=== PATIENT | male | born 1940 | race Caucasian/White ===

== ENCOUNTER 2018-04-01 18:29 | Inpatient (IN) | payer OTHER ==
--- NOTE | 2018-04-01 18:45 | EDPHY ---
H & P Source: Patient, Family (), RN/MD, EMS Exam Limitations: No limitations Time Seen by Provider: 04/01/18 18:44 HPI/ROS: HPI: This is a 77-year-old male who presents with Chief Complaint: Mechanical fall Location: Quality: Duration: Signs and Symptoms: No bleeding, no radiation, no numbness, no weakness, no tingling, no incontinence, no decreased range of motion, no swelling, no pain, no fever Timing: Severity: Context: Patient presents via EMS with accidentally tripping on the carpet while wearing shoes inside of the house approximately 1 hr prior to arrival. Patient reports that as he was falling forward he turned his body to the left "acute was sliding into home plate." Patient reports that he hit his left wrist , then his left ribs. He reports that he got the wind knocked out of him. Patient has COPD in supplemental oxygen dependent 2-3 L continuous. Patient was able to ambulate and get up off of the floor on his own. Denies LOC/head injury/neck pain/dizziness/nausea/vomiting/amnesia. On Plavix and aspirin. Patient complains of left lateral and posterior rib pain that is worsened with taking a deep breath or touching the area. He also complains of left wrist plane and a small cut on the left wrist. Reports tetanus is current. Denies radiation, weakness, decreased range of motion. Patient is right-hand dominant. Modifying Factors: Comment: ROS: A comprehensive 10 system review of systems is otherwise negative aside from elements mentioned in the history of present illness. MEDICAL/SURGICAL/SOCIAL HISTORY: Medical history: COPD, continues oxygen dependent, coronary artery disease, depression Surgical history: Denies Social history: , retired. Former smoker. CONSTITUTIONAL: Polite and cooperative, elderly white male, at bedside, awake and alert, no obvious distress HEENT: Atraumatic and normocephalic, PERRL, EOMI. no globe entrapment, no raccoon eyes. no [place] signs.Tympanic membranes clear. No tympanic membrane rupture. Nares patent; no septal hematoma. Oropharynx clear, no exudate and moist pink mucosa. No malocclusion. no dental trauma. Airway patent. No lymphadenopathy. NECK: supple, no midline tenderness, flexion 45 degrees, extension 45 degrees, right and left lateral flexion 45 degrees. No meningismus. Cardiovascular: Normal S1/S2, regular rate, regular rhythm, without murmur rub or gallop. PULMONARY/CHEST: Symmetrical and left lower lateral and posterior reproducible rib tenderness-no ecchymosis/no step-off. no crepitus. Coarseness inspiratory and expiratory bilaterally. Shallow inspiratory effort. Fair air movement. No accessory muscle usage. ABDOMEN: Soft, protuberant, nondistended, nontender, no ecchymosis, no rebound , no guarding, no peritoneal signs, no masses or organomegaly. No CVAT. PELVIC: no pain with rocking; bilateral hips flexion 125 degrees, extension 30 degrees, with no pain internal rotation and no pain external rotation. BACK: No midline tenderness, no paraspinous spasm, deep tendon reflexes 2/2, no pain with straight leg raise EXTREMITIES: 2/2 radial pulses, left WRIST: Small 1/4 inch superficial abrasion noted to the ulnar aspect-no active bleeding. Extension to 70, flexion to 80, radial deviation to 20 degree, ulnar deviation to 30, no scaphoid tenderness, no tenderness over ulnar styloid, no tenderness over radial styloid. no deformities, no clubbing, no cyanosis or edema. NEUROLOGICAL: no focal neuro deficits. GCS 15. SKIN: Warm and dry, leathery, no erythema. no rash. Good capillary refill. (Brittney Raphael) Constitutional: Initial Vital Signs Temperature (C) 36.5 C 04/01/18 18:41 Heart Rate 65 04/01/18 18:41 Respiratory Rate 20 04/01/18 18:41 Blood Pressure 148/92 H 04/01/18 18:41 O2 Sat (%) 96 04/01/18 18:41 O2 Delivery Mode Nasal Cannula O2 (L/minute) 2 Allergies/Adverse Reactions: Sulfa (Sulfonamide Antibiotics) Allergy (Verified 04/01/18 18:50) unk statin med Allergy (Uncoded 04/01/18 18:50) Home Medications: Medication Instructions Recorded AZELASTINE HCL [Optivar Opth Soln] 0 drop OP 06/27/12 Albuterol Hfa Anes Only [Proair 2 puffs IH QID 06/27/12 Hfa Icu] Albuterol [Proventil 2 mg (RX)] 2 mg PO TID 06/27/12 Aspirin [Aspir 81] 81 mg PO 06/27/12 BUPROPION HCL [BUPROPION XL] 300 mg PO 06/27/12 Clopidogrel Bisulfate [Plavix (RX)] 75 mg PO DAILY 06/27/12 Doxycycline Monohydrate 100 mg PO 06/27/12 [Doxycycline] FLUTICASONE/SALMETEROL [ADVAIR HFA 1 puffs IH 06/27/12 115-21 MCG INHALER] FLUoxetine [Prozac Oral Liquid] 20 mg PO 06/27/12 Furosemide [Lasix 20 MG (RX)] 20 mg PO 06/27/12 Guaifenesin [Mucinex] 600 mg PO 06/27/12 Insulin NPH Human Isophane 100 unit SQ 06/27/12 [Novolin N] Ipratropium 0.03% Nasal [Atrovent 2 sprays EACHNARE 06/27/12 0.03% Nasal (RX)] Ipratropium [Atrovent Hfa] 200 puffs IH 06/27/12 Isosorbide 1 gm MC 06/27/12 LEVOTHYROXINE SODIUM [Tirosint 88 112 mcg PO 06/27/12 mcg] Losartan/Hydrochlorothiazide 1 each PO 06/27/12 [Losartan-Hctz 100-12.5 Mg Tab] Mometasone/Formoterol [Dulera 100 13 gm IH 06/27/12 Mcg/5 Mcg Inhaler] Nitroglycerin [Nitrostat 0.4 mg 0.4 mg SL PRN PRN 06/27/12 (RX)] OXYBUTYNIN CHLORIDE [Ditropan ER 5 mg PO 06/27/12 10 mg] Oxygen-Air Delivery Systems 1 ea IH AD 06/27/12 [OXYGEN] Pantoprazole Sodium [Protonix] 40 mg PO 06/27/12 Pravastatin Sodium 40 mg PO 06/27/12 Spironolactone 25 mg PO 06/27/12 Tamsulosin HCl [Flomax 0.4 MG (RX)] 0.4 mg PO DAILY8 06/27/12 Zoldipem 06/27/12 amLODIPine BESYLATE [Norvasc] 10 mg PO DAILY 06/27/12 metFORMIN HCL [Glucophage] 1,000 mg PO 06/27/12 Medical Decision Making ED Course/Re-evaluation: Vital signs reviewed and show O2 sats to be 86% on room air. Placed on 3 L nasal cannula and O2 sats 96%. Placed on satellite project site monitor. Fall was mechanical in nature. IV access and i-STAT laboratory studies ordered Based on nexus protocol of age greater than 65 years old and on blood thinners, head CT imaging ordered Will order CT chest with contrast to evaluate for rib fracture, pneumothorax Given IV morphine 4 mg and IV Zofran 4 mg Left wrist x-ray ordered Left wrist superficial abrasion cleaned with soap and water; bacitracin clean sterile dressing applied. 1858: Notified by refrigeration technician that patient and were not declining left wrist x-ray. 1949: Notified by RN that CT brought patient back as coughing. Given Tessalon Perles 200 mg. Patient/ now refusing head CT scan despite my recommendation. We discussed risk of intracranial hemorrhage and . Patient understands this and wishes to not proceed with head CT scan. 2008: WBC 12 K, H&H 10.1/11.6-normocytic type, creatinine 0.1. No signs of anemia/platelet dysfunction/JEFF/electrolyte imbalance. 2014: Notified by RN that patient is complaining of pain and unable to lie flat for CT. IV Dilaudid 1 mg given 2056: Called by Radiology, CT chest shows emphysema, substernal goiter, nondisplaced fractured ribs 5. 6. 7. 8., no pneumothorax ED decision to consult Trauma surgery, Dr. Barrera, for admission for multiple rib fractures in COPD patient that is oxygen dependent. Recommendation is to admit to step-down for frequent neuro checks due to polite refusal of head CT scan while on blood thinners and greater than 65 years of age. Hospitalist, Dr. Hui, consulted for medical management. No signs of neurovascular compromise/tenting of skin/compartment syndrome/ extremities and joints examined above and below area of concern and are neurovascularly intact. This patient was seen under the supervision of my secondary supervising physician. Discussed this patient with Dr. Cabrera who did see the patient. (Brittney Raphael) Differential Diagnosis: Differential diagnosis includes but is not limited to rib fracture, pulmonary contusion, pneumothorax, hemo thorax, left wrist fracture (Brittney Raphael) Other Provider: PHYSICIAN DOCUMENTATION: The patient was evaluated and managed by the Physician Grinder And Plater and myself. I have reviewed the chart and agree with the findings and plan of care as documented. In addition, I examined the patient myself. History confirmed as mechanical fall, did not have syncope or lose consciousness. Physical findings as follows: Patient is alert and conversant. He does have breath sounds but are decreased on both sides. Warned that delay or failure to diagnose intracranial bleed could result in permanent disability or even . He had refused CT scanning because he was worried about being claustrophobic. At this point with multiple rib fractures on a patient who is already on oxygen , will admit to Trauma service for further evaluation and treatment. Cervical spine cleared clinically by myself. No neck tenderness. I am the secondary supervising physician. (Amilcar Cabrera) - Data Points Laboratory Results: Laboratory Results 04/01/18 19:12 04/01/18 19:12 04/01/18 04/01/18 04/01/18 19:18 19:12 19:12 WBC RBC Hgb POC Hgb 11.6 gm/dL L gm/dL (13.7-17.5) Hct POC Hct 34 % L % (40-51) MCV MCH MCHC RDW Plt Count MPV Neut % (Auto) Lymph % (Auto) [place] % (Auto) Eos % (Auto) Baso % (Auto) Nucleat RBC Rel Count Absolute Neuts (auto) Absolute Lymphs (auto) Absolute Monos (auto) Absolute Eos (auto) Absolute Basos (auto) Absolute Nucleated RBC Immature Gran % Immature Gran # PT 12.8 SEC SEC (12.0-15.0) INR 0.94 (0.83-1.16) APTT 28.5 SEC SEC (23.0-38.0) POC Sodium 138 mEq/L mEq/L (135-145) Sodium 134 mEq/L L mEq/L (135-145) POC Potassium 4.9 mEq/L mEq/L (3.3-5.0) Potassium 5.1 mEq/L mEq/L (3.5-5.2) POC Chloride 102 mEq/L mEq/L (97-110) Chloride 104 mEq/L mEq/L (97-110) Carbon Dioxide 24 mEq/l mEq/l (22-31) Anion Gap 6 mEq/L mEq/L (6-14) POC BUN 20 mg/dL mg/dL (7-23) BUN 22 mg/dL mg/dL (7-23) Creatinine 0.8 mg/dL mg/dL (0.7-1.3) POC Creatinine 0.9 mg/dL mg/dL (0.7-1.3) Estimated GFR > 60 Glucose 129 mg/dL H mg/dL (70-100) POC Glucose 134 mg/dL H mg/dL (70-100) Calcium 8.9 mg/dL mg/dL (8.5-10.4) 04/01/18 19:12 WBC 11.87 10^3/uL H 10^3/uL (3.80-9.50) RBC 3.59 10^6/uL L 10^6/uL (4.40-6.38) Hgb 10.1 g/dL L g/dL (13.7-17.5) POC Hgb Hct 32.7 % L % (40.0-51.0) POC Hct MCV 91.1 fL fL (81.5-99.8) MCH 28.1 pg pg (27.9-34.1) MCHC 30.9 g/dL L g/dL (32.4-36.7) RDW 15.1 % % (11.5-15.2) Plt Count 376 10^3/uL 10^3/uL (150-400) MPV 8.8 fL fL (8.7-11.7) Neut % (Auto) 81.9 % H % (39.3-74.2) Lymph % (Auto) 8.8 % L % (15.0-45.0) [place] % (Auto) 7.1 % % (4.5-13.0) Eos % (Auto) 1.1 % % (0.6-7.6) Baso % (Auto) 0.3 % % (0.3-1.7) Nucleat RBC Rel Count 0.0 % % (0.0-0.2) Absolute Neuts (auto) 9.73 10^3/uL H 10^3/uL (1.70-6.50) Absolute Lymphs (auto) 1.04 10^3/uL 10^3/uL (1.00-3.00) Absolute Monos (auto) 0.84 10^3/uL H 10^3/uL (0.30-0.80) Absolute Eos (auto) 0.13 10^3/uL 10^3/uL (0.03-0.40) Absolute Basos (auto) 0.04 10^3/uL 10^3/uL (0.02-0.10) Absolute Nucleated RBC 0.00 10^3/uL 10^3/uL (0-0.01) Immature Gran % 0.8 % % (0.0-1.1) Immature Gran # 0.09 10^3/uL 10^3/uL (0.00-0.10) PT INR APTT POC Sodium Sodium POC Potassium Potassium POC Chloride Chloride Carbon Dioxide Anion Gap POC BUN BUN Creatinine POC Creatinine Estimated GFR Glucose POC Glucose Calcium Medications Given: Discontinued Medications Benzonatate (Tessalon Pearles) 200 mg PO EDNOW ONE Stop: 04/01/18 19:51 Last Admin: 04/01/18 20:03 Dose: 200 mg Hydromorphone HCl (Dilaudid) 1 mg IVP EDNOW ONE Stop: 04/01/18 20:08 Last Admin: 04/01/18 20:53 Dose: 1 mg Morphine Sulfate (Morphine) 4 mg IVP EDNOW ONE Stop: 04/01/18 18:49 Last Admin: 04/01/18 19:26 Dose: 4 mg Ondansetron HCl (Zofran) 4 mg IVP EDNOW ONE Stop: 04/01/18 18:49 Last Admin: 04/01/18 19:26 Dose: 4 mg Ondansetron HCl (Zofran) 4 mg IVP EDNOW ONE Stop: 04/01/18 20:54 Last Admin: 04/01/18 20:54 Dose: 4 mg Point of Care Test Results: Chemistry 04/01/18 19:18 POC Sodium 138 mEq/L mEq/L (135-145) POC Potassium 4.9 mEq/L mEq/L (3.3-5.0) POC Chloride 102 mEq/L mEq/L (97-110) POC BUN 20 mg/dL mg/dL (7-23) POC Creatinine 0.9 mg/dL mg/dL (0.7-1.3) POC Glucose 134 mg/dL H mg/dL (70-100) ISTAT H&H 04/01/18 19:18 POC Hgb 11.6 gm/dL L gm/dL (13.7-17.5) POC Hct 34 % L % (40-51) Departure - Departure Disposition: [facility] Inpatient Acute Clinical Impression: Abrasion of left wrist, initial encounter, Supplemental oxygen dependent, Chronic anticoagulation Accidental fall Qualifiers: Encounter type: initial encounter Qualified Code(s): W19.XXXA - Unspecified fall, initial encounter Multiple fractures of ribs of left side Qualifiers: Encounter type: initial encounter Fracture type: closed Qualified Code(s): S22.42XA - Multiple fractures of ribs, left side, initial encounter for closed fracture Emphysema of lung Qualifiers: Emphysema type: unspecified Qualified Code(s): J43.9 - Emphysema, unspecified Condition: Fair
[2018-04-01] MEDS ORDERED: ONDANSETRON 4 MG/2 ML VIAL IVP ONE ×2 (18:48→20:53)
[2018-04-01] MEDS ORDERED: IOPAMIDOL (ISOVUE-300) 100 ML BTL ONE (19:21)
[2018-04-01 19:33] LABS: PLATELET COUNT 376 10^3/uL (150-400)
[2018-04-01 19:43] LABS: INR 0.94 (0.83-1.16); PROTIME(PATIENT) 12.8 SEC (12.0-15.0)
[2018-04-01] MEDS ORDERED: BENZONATATE 100 MG CAP PO ONE (19:50)
[2018-04-01] MEDS ORDERED: HYDROmorphONE/DILAUDID 2 MG/ML INJ IVP ONE (20:07)
[2018-04-01] MEDS ORDERED: ONDANSETRON 4 MG/2 ML VIAL ONE (20:18)
[2018-04-01] MEDS ORDERED: ONDANSETRON 4 MG/2 ML VIAL IVP PRN ×2 (21:27→21:33)
[2018-04-01] MEDS ORDERED: D5W 1/2 NS 1,000 ML IV SCH (21:30)
[2018-04-01] MEDS ORDERED: OXYCODONE/APAP 5/325 TAB PO PRN (21:33)
--- NOTE | 2018-04-01 21:38 | SOAPPROG ---
SOAP Progress Note Assessment/Plan: Assessment: 77 male with trip and fall sustaining multiple left rib fxs, nondisplaced/ no other injuries and no loc pt with DM, COPD heent nonicteric chest symmetric, clear bs/ tender left lateral ribs abd soft, nontender extrem ok pt on plavix and insulin as well as multiple pulmonary meds Plan:admit SDU/ IM consult/ RESP care 04/01/18 21:34 Objective: Vital Signs Temp Pulse Resp BP Pulse Ox 36.5 C 70 18 141/80 H 97 04/01/18 18:41 04/01/18 21:14 04/01/18 21:14 04/01/18 21:14 04/01/18 21:14 PT 12.8 SEC (12.0-15.0) 04/01/18 19:12 INR 0.94 (0.83-1.16) 04/01/18 19:12 ICD10 Worksheet Patient Problems: Problems Problem Status Onset Abrasion of left wrist, initial encounter Acute Accidental fall Acute Chronic anticoagulation Acute Emphysema of lung Acute Multiple fractures of ribs of left side Acute Supplemental oxygen dependent Acute
[2018-04-01] MEDS ORDERED: D50W 25 GM/50 ML VIAL IVP PRN (22:52)
--- NOTE | 2018-04-01 23:23 | GHP ---
DATE OF ADMISSION: 04/01/2018 HISTORY OF PRESENT ILLNESS: The patient is a 77-year-old male who apparently tripped and fell at dean e. It is unclear what he struck. He was brought to the ER with left-sided rib pain. He was found t o have 4 nondisplaced rib fractures on the left without pneumothorax or hemothorax present. Problem is complicated by his COPD and 24 hour oxygen use. He denies any loss of consciousness or other inju pita, and he himself refused a head CT scan. He is on Plavix. He is admitted at this time for pain control and observation. Risks and options fully discussed. He wishes to proceed. PAST MEDICAL HISTORY: Includes COPD on 2-3 L of oxygen continuously. He has had no previous surgeri es or other major medical problems. He is an ex-smoker. He also has history of coronary artery dise ase and depression. ALLERGIES: Sulfa. MEDICATIONS: Statin, Protonix, oxygen, Ditropan, Nitrostat, Dulera, losartan/hydrochlorothiazide, Sy nthroid, isosorbide, Atrovent, insulin, Mucinex, Lasix, Prozac, Advair, doxycycline, Plavix, bupropio n, aspirin, albuterol, ProAir, Optivar eyedrops, spironolactone, Flomax, Ambien, Norvasc, metformin, and Daliresp. PHYSICAL EXAMINATION: GENERAL APPEARANCE: Reveals an alert cooperative 77-year-old male in no acute distress, afebrile. HEENT: Nonicteric, PERRLA, EOMs intact. No oral lesions. NECK: Supple nonte nder with full range of motion. CHEST: Clear and symmetric with decreased breath sounds and some in creased AP diameter. CARDIAC: Reveals a regular rhythm without murmurs. ABDOMEN: Soft, nontender, without masses, organomegaly, or bruits. GENITALIA: Normal. PELVIS: Intact: EXTREMITIES: Revea l full range of motion. Palpable pedal pulses. NEUROLOGIC: Exam was physiologic and symmetric. PS YCH: Reveals him to be alert, cooperative, oriented. IMPRESSION: 1. Multiple left rib fractures. 2. Chronic obstructive pulmonary disease. 3. Coronary artery disease. 4. Hypertension. 5. Diabetes. 6. Depression. PLAN: Admit for observation and respiratory therapy. /[id number]/MODL
[2018-04-01] MEDS: HYDROmorphONE/DILAUDID 1 MG/ML INJ IVP PRN (23:43)
[2018-04-02 00:33] LABS: PLATELET COUNT 324 10^3/uL (150-400)
--- NOTE | 2018-04-02 01:03 | PDHOSCONS ---
History and Physical - Chief Complaint Fall - History of Present Illness 77 yo M w/ hx of DM, COPD, and CAD presents after a fall. The patient suffered a mechanical fall at home and broke several ribs. The patient denies head trauma , LOC, or neurologic symptoms. At the time of my evaluation he is pleasant and cooperative. He denies symptoms aside from L sided rib pain. He tells me he has history of COPD, DM, and CAD. He denies any acute issues with the medical problems. He has been actively titrating his insulin lately as a result of significant weight loss. He tells me short acting insulin was recently removed from his regimen and he manages his blood sugar with metformin and twice daily NPH, which he adjusts for his BG. He tells me his usual BG runs in the 90-110 range now. Case discussed with Dr. Hui; records reviewed and summarized above. History Information - Allergies/Home Medication List Allergies/Adverse Reactions: Sulfa (Sulfonamide Antibiotics) Allergy (Verified 04/01/18 18:50) unk statin med Allergy (Uncoded 04/01/18 18:50) Home Medications: Albuterol Hfa Anes Only [Proair Hfa Icu] 1 - 2 puffs IH QID 06/27/12 [Last Taken Unknown] Clopidogrel Bisulfate [Plavix (RX)] 75 mg PO DAILY 06/27/12 [Last Taken 11:00] Insulin NPH Human Isophane [Novolin N] 0 - 7 unit SQ DAILY 06/27/12 [Last Taken 04/01/18 11:00] Losartan/Hydrochlorothiazide [Losartan-Hctz 100-12.5 Mg Tab] 1 each PO 06/27/12 [Last Taken Unknown] Mometasone/Formoterol [Dulera 100 Mcg/5 Mcg Inhaler] 2 puffs IH DAILY 06/27/12 [ Last Taken 04/01/18] Nitroglycerin [Nitrostat 0.4 mg (RX)] 0.4 mg SL PRN PRN 06/27/12 [Last Taken Unknown] Spironolactone 25 mg PO DAILY 06/27/12 [Last Taken 04/01/18 11:00] Tamsulosin HCl [Flomax 0.4 MG (RX)] 0.8 mg PO HS 06/27/12 [Last Taken 03/31/18] metFORMIN HCL [Glucophage] 1,000 mg PO BID 06/27/12 [Last Taken 04/01/18 11:00] Aspirin EC [Aspirin EC 81 mg (*)] 81 mg PO HS 04/01/18 [Last Taken 03/31/18] Bupropion HCl [Wellbutrin Xl] 300 mg PO DAILY 04/01/18 [Last Taken 04/01/18 11: 00] FLUoxetine [Prozac 20 MG (*)] 20 mg PO BID 04/01/18 [Last Taken 04/01/18 11:00] Fluticasone/Salmeter 500/50Mcg [Advair 500/50 (*)] 1 puffs IH BID 04/01/18 [ Last Taken 04/01/18 09:00] Furosemide [Lasix 20 MG (*)] 20 - 40 mg PO DAILY PRN 04/01/18 [Last Taken 11:00] Insulin NPH Human Isophane [Novolin N] 8 - 18 unit SQ HS 04/01/18 [Last Taken ] Levothyroxine [Synthroid 100 mcg (*)] 100 mcg PO DAILY06 04/01/18 [Last Taken ] Metoprolol Tartrate [Lopressor 25 mg (*)] 25 mg PO BID 04/01/18 [Last Taken 06/15 09:00] Oxybutynin Chloride 5 mg PO BID 04/01/18 [Last Taken 04/01/18 09:00] Pantoprazole Sodium [Protonix 40mg (*)] 40 mg PO DAILY 04/01/18 [Last Taken 06/15] Roflumilast [Daliresp] 500 mcg PO DAILY 04/01/18 [Last Taken 04/01/18 09:00] Rosuvastatin Calcium [Crestor 20mg (*)] 20 mg PO DAILY 04/01/18 [Last Taken 06/15 11:00] guaiFENesin [Mucinex 600 MG (*)] 600 mg PO BID 04/01/18 [Last Taken 04/01/18 09: 00] I have personally reviewed and updated: family history, medical history - Past Medical History coronary artery disease, COPD, diabetes type 2 - Surgical History Reports: coronary stent Additional surgical history: R rotator cuff - Family History Additional family history: Bleeding diathesis - Social History Smoking Status: Former smoker Review of Systems Review of Systems: ROS: 10pt was reviewed & negative except for what was stated in HPI & below Physical Exam Physical Exam: Temp Pulse Resp BP Pulse Ox 36.5 C 73 18 113/56 L 100 04/01/18 18:41 04/02/18 00:00 04/01/18 21:14 04/02/18 00:00 04/02/18 00:00 O2 (L/minute) 2 Constitutional: appears nourished, uncomfortable Eyes: anicteric sclera, other (L eye deviation, chronic) Ears, Nose, Mouth, Throat: moist mucous membranes, no oral mucosal ulcers Cardiovascular: regular rate and rhythym, systolic murmur, edema (1+ b/l JUAN) Respiratory: no respiratory distress, reduced air movement Gastrointestinal: normoactive bowel sounds, soft, non-tender abdomen Skin: warm, normal color Musculoskeletal: full muscle strength, no muscle tenderness Neurologic: AAOx3, CN II-XII Intact Psychiatric: interacting appropriately, not anxious Lab Data & Imaging Review 04/02/18 00:20 04/01/18 19:12 WBC 8.29 10^3/uL (3.80-9.50) 04/02/18 00:20 RBC 3.28 10^6/uL (4.40-6.38) L 04/02/18 00:20 Hgb 9.2 g/dL (13.7-17.5) L 04/02/18 00:20 POC Hgb 11.6 gm/dL (13.7-17.5) L 04/01/18 19:18 Hct 29.2 % (40.0-51.0) L 04/02/18 00:20 POC Hct 34 % (40-51) L 04/01/18 19:18 MCV 89.0 fL (81.5-99.8) 04/02/18 00:20 MCH 28.0 pg (27.9-34.1) 04/02/18 00:20 MCHC 31.5 g/dL (32.4-36.7) L 04/02/18 00:20 RDW 15.3 % (11.5-15.2) H 04/02/18 00:20 Plt Count 324 10^3/uL (150-400) 04/02/18 00:20 MPV 8.7 fL (8.7-11.7) 04/02/18 00:20 Neut % (Auto) 79.9 % (39.3-74.2) H 04/02/18 00:20 Lymph % (Auto) 11.7 % (15.0-45.0) L 04/02/18 00:20 [place] % (Auto) 7.0 % (4.5-13.0) 04/02/18 00:20 Eos % (Auto) 0.4 % (0.6-7.6) L 04/02/18 00:20 Baso % (Auto) 0.5 % (0.3-1.7) 04/02/18 00:20 Nucleat RBC Rel Count 0.0 % (0.0-0.2) 04/02/18 00:20 Absolute Neuts (auto) 6.63 10^3/uL (1.70-6.50) H 04/02/18 00:20 Absolute Lymphs (auto) 0.97 10^3/uL (1.00-3.00) L 04/02/18 00:20 Absolute Monos (auto) 0.58 10^3/uL (0.30-0.80) 04/02/18 00:20 Absolute Eos (auto) 0.03 10^3/uL (0.03-0.40) 04/02/18 00:20 Absolute Basos (auto) 0.04 10^3/uL (0.02-0.10) 04/02/18 00:20 Absolute Nucleated RBC 0.00 10^3/uL (0-0.01) 04/02/18 00:20 Immature Gran % 0.5 % (0.0-1.1) 04/02/18 00:20 Immature Gran # 0.04 10^3/uL (0.00-0.10) 04/02/18 00:20 PT 12.8 SEC (12.0-15.0) 04/01/18 19:12 INR 0.94 (0.83-1.16) 04/01/18 19:12 APTT 28.5 SEC (23.0-38.0) 04/01/18 19:12 POC Sodium 138 mEq/L (135-145) 04/01/18 19:18 Sodium 134 mEq/L (135-145) L 04/01/18 19:12 POC Potassium 4.9 mEq/L (3.3-5.0) 04/01/18 19:18 Potassium 5.1 mEq/L (3.5-5.2) 04/01/18 19:12 POC Chloride 102 mEq/L (97-110) 04/01/18 19:18 Chloride 104 mEq/L (97-110) 04/01/18 19:12 Carbon Dioxide 24 mEq/l (22-31) 04/01/18 19:12 Anion Gap 6 mEq/L (6-14) 04/01/18 19:12 POC BUN 20 mg/dL (7-23) 04/01/18 19:18 BUN 22 mg/dL (7-23) 04/01/18 19:12 Creatinine 0.8 mg/dL (0.7-1.3) 04/01/18 19:12 POC Creatinine 0.9 mg/dL (0.7-1.3) 04/01/18 19:18 Estimated GFR > 60 04/01/18 19:12 Glucose 129 mg/dL (70-100) H 04/01/18 19:12 POC Glucose 134 mg/dL (70-100) H 04/01/18 19:18 Calcium 8.9 mg/dL (8.5-10.4) 04/01/18 19:12 Imaging Review: Imaging Impressions Chest CT 04/01/18 18:48 Impression: 1. Minimally displaced posterolateral left 5th, 6th, 7th, and 8th rib fractures , without pneumothorax or pleural hemorrhage. 2. Right-sided substernal goiter. 3. Underlying emphysema. Results called to Brittney Raphael PA-C, at 9:00 p.m. Assessment & Plan Assessment: 77 yo M w/ COPD, DM, and CAD presents after a fall w/ acute rib fractures. Plan: 1. Mechanical fall c/b L rib fractures - Patient denies LOC or head trauma; XR ( personally reviewed/interpreted) reveals minimally displaced posterolateral left 5th, 6th, 7th, and 8th rib fractures. - Trauma surgery primary, appreciate assistance - Pain control PRN - Incentive spirometry ordered - PT/OT evaluations 2. DM - Controlled at home with metformin and NPH sliding scale. He reports good control after recent weight loss. - Will continue metformin, manage BG w/ insulin lispro SSI while inpatient - Monitor BG ACHS; D50 IV PRN for hypoglycemia 3. COPD, CHRF - Severe, on chronic O2 and advanced therapies. He is currently stable on his home O2 with no evidence of acute exacerbation. - Continue home medications - Unclear why both Dulera and Advair are on med list, patient cannot explain. I will continue Advair only for now. 4. CAD - With 2 stents placed about 15 years ago; no evidence of acute process. - Will hold DAPT pending acute trauma - Restart when ok per trauma perspective; this is non-urgent noting remote nature of stent placement. Thank you for this consult, the hospital medicine service will follow along with you.
[2018-04-02] MEDS: HYDROmorphONE/DILAUDID 1 MG/ML INJ IVP PRN ×4 (04:41→15:17)
[2018-04-02 05:51] LABS: PLATELET COUNT 340 10^3/uL (150-400)
[2018-04-02] MEDS: LEVOTHYROXINE 100 MCG TAB PO SCH (06:50)
[2018-04-02] MEDS: FLUoxetine 20 MG CAP PO SCH ×2 (08:10→21:37)
[2018-04-02] MEDS: PANTOPRAZOLE SODIUM 40 MG TAB PO SCH (08:10)
[2018-04-02] MEDS: ROSUVASTATIN CALCIUM 20 MG TAB PO SCH (08:10)
[2018-04-02] MEDS: SPIRONOLACTONE 25 MG TAB PO SCH (08:10)
[2018-04-02] MEDS: INSULIN LISPRO 100 UNIT/ML SC SCH ×3 (08:10→18:26)
[2018-04-02] MEDS: METOPROLOL TARTRATE 25 MG TAB PO SCH ×2 (08:10→21:35)
[2018-04-02] MEDS: buPROPion XL 150 MG TAB PO SCH (08:10)
[2018-04-02] MEDS ORDERED: ENOXAPARIN 40 MG/0.4 ML SYR SC SCH (09:00)
--- NOTE | 2018-04-02 09:01 | PDMN ---
Medical Necessity Medical necessity: [facility] M545 rib fractures: three or more traumatic rib fxs. 77 yr old male at home with fall - CT notes displaced rib fxs of 5,6,7,8. pt has PMHx of COPD, with 24 hr O2 use, CAD, DM, depression. anticipate > 2 MN ongoing med nec care, further monitoring eval and tx needed.
[2018-04-02] MEDS: FLUTICASONE/SALMETER 500/50MCG DISKUS IH SCH ×3 (09:30→20:55)
[2018-04-02] MEDS: LIDOCAINE 4%/MENTHOL 1% PATCH TD SCH (09:49)
[2018-04-02] MEDS: Roflumilast [Daliresp] 500 MCG PO SCH (11:25)
[2018-04-02] MEDS: ONDANSETRON DISINTEGRATING 4 MG TAB PO PRN (11:34)
--- NOTE | 2018-04-02 15:48 | ASMTCASEMG ---
Living Arrangements What is your living Answers: With Spouse arrangement? Who do you live with? Type Of Residence What kind of residence do Answers: House you live in? Discharge Plan Comments Coordination Status Comments Notes: Patient is a 77yo male who tripped and fell at home and sustained multiple rib fractures. Patient has COPD and is on 2-3 l of oxygen continuously. He also has a hx of coronary artery disease and depression. Patient's reports he has had frequent falls. PT/OT/BUSINESS ANALYTICS MANAGER/Inpatient Rehab have all been ordered for the patient. D/C plan TBD. CM will follow. Date Signed: 04/02/2018 03:48 PM Electronically Signed By:Josee Dumont LCSW
--- NOTE | 2018-04-02 16:22 | HOSPPROG ---
Hospitalist Progress Note Assessment/Plan: 77 yo M w/ COPD, DM, and CAD presents after a fall w/ acute rib fractures. Plan: 1. Mechanical fall c/b L rib fractures - XR (personally reviewed/interpreted) reveals minimally displaced posterolateral left 5th, 6th, 7th, and 8th rib fractures. - pain today somewhat increased and limiting his ability to ambulate/ take deep breaths--increased access to pain meds, continue pulm toilet 2. DM - Controlled at home with metformin and NPH sliding scale. He reports good control after recent weight loss. - Will continue metformin, manage BG w/ insulin lispro SSI while inpatient 3. COPD, CHRF - Severe, on chronic O2 and advanced therapies. He is currently stable on his home O2 with no evidence of acute exacerbation. - Continue home medications including advair, tiotropium, albuterol and daliresp - appreciated pulmonary input 4. CAD - With 2 stents placed about 15 years ago; no evidence of acute process. - Will hold DAPT pending acute trauma - Restart when ok per trauma perspective; this is non-urgent noting remote nature of stent placement. 5. Inapatient Patient new to [facility] are. Old records reviewed/summarized as above. Care plan reviewed with Dr. Randall and Dr. García as above, further hx obtained from patients present at bedside Subjective: patient notes that pain is increased today, has not been able to sleep due to pain, difficulty working with pt and taking deep breaths Objective: Vital Signs Temp Pulse Resp BP Pulse Ox 36.4 C 76 15 136/50 H 98 04/02/18 11:45 04/02/18 11:45 04/02/18 11:45 04/02/18 11:45 04/02/18 11:45 Laboratory Results 04/02/18 05:46 04/02/18 04:05 04/01/18 04/02/18 04/03/18 05:59 05:59 05:59 Intake Total 500 Output Total 450 Balance 50 PT 12.8 SEC (12.0-15.0) 04/01/18 19:12 INR 0.94 (0.83-1.16) 04/01/18 19:12 elderly man awake and alert anicteric op clear rrr no mrg dec bs at bases nomral wob soft nt nd no cce warm dry well perfused oriented - Time Spent With Patient Time Spent with Patient: greater than 35 minutes Time Spent with Patient: Greater than 35 minutes spent on this patients care, greater than 50% of time spent counseling, educating, and coordinating care regarding the above mentioned plan. ICD10 Worksheet Patient Problems: Problems Problem Status Onset Abrasion of left wrist, initial encounter Acute Accidental fall Acute Multiple fractures of ribs of left side Acute Supplemental oxygen dependent Acute Emphysema of lung Acute Chronic anticoagulation Acute
--- NOTE | 2018-04-02 17:36 | TRAUMAPNT ---
Trauma Tertiary Progress Note New Findings: No additional findings on tertiary survey. Assessment/Plan: This is a 77-year-old gentleman who fell at home. He believes he tripped over his oxygen cord or on a rug. He sustained multiple rib fractures on the left and has continued pain despite Dilaudid and Percocet as first-line therapy. Has underlying chronic obstructive pulmonary disease which complicates his lung injury. His other comorbid problems include cardiac disease status post stent x2 on Plavix, BPH, diabetes and obesity Refused CT scan of the head yesterday neuro checks q.2 hours overnight were essentially normal Chest x-ray this morning PA and lateral upright does not demonstrate and involving contusion. Complaints this morning are of continued chest wall pain on the left despite medication. Productive cough. Desire to restart his home medications. Blood sugars have been within normal limits. Alert oriented to person place and time. Mentation good Ecchymoses on both upper extremities and left flank. Tender to palpation left torso. Clear to auscultation on the right crackles on the left mid chest. Abdomen has ecchymosis from Lovenox injections No evidence of extremity fracture dislocation Impression/plan: multiple comorbid issues including COPD and a 77-year-old man with chest trauma. Seen by critical care/pulmonology he is on medications that will help with expectoration and for COPD no additional medication adjustment needed. Appreciate Internal Medicine consultation for diabetes and cardiac disease. Lidocaine patch added to patient's pain management. Continue to hold Plavix for now. Restart aspirin as opposed to nonsteroidal anti-inflammatories Hold Lovenox due to bleeding Transfer to floor. Anticipate discharge in 24-48 hours once adequate oral pain medication regimen can be established. Objective: Vital Signs Temp Pulse Resp BP Pulse Ox 36.7 C 80 15 125/50 H 92 04/02/18 16:00 04/02/18 16:00 04/02/18 16:00 04/02/18 16:00 04/02/18 16:00 Laboratory Results 04/02/18 05:46 04/02/18 04:05 04/01/18 04/02/18 04/03/18 05:59 05:59 05:59 Intake Total 500 Output Total 450 Balance 50 PT 12.8 SEC (12.0-15.0) 04/01/18 19:12 INR 0.94 (0.83-1.16) 04/01/18 19:12
--- NOTE | 2018-04-02 17:53 | GHP ---
DATE OF ADMISSION: 04/01/2018 REFERRING PHYSICIAN: Yvon García MD Pulmonary/critical care consultation. REASON FOR REFERRAL: Evaluation and management of COPD and rib fractures. HISTORY: Mr. Figueroa is a 77-year-old male with a history of COPD who apparently tripped and fell at home. He was brought to the emergency department yesterday with left-sided rib pain. He was found to have 4 nondisplaced rib fractures on the left. There was no pneumothorax or hemothorax. He has a history of COPD, followed by a jewel inspector and currently apparently in transition between doctors. He reports that his COPD has been better controlled since starting Daliresp. He is on oxygen continuously. PAST MEDICAL HISTORY: 1. COPD, on continuous oxygen and several medications. 2. Coronary artery disease. 3. Depression. 4. Diabetes. MEDICATIONS: 1. Albuterol. 2. Clopidogrel. 3. Insulin. 4. Losartan. 5. Dulera. 6. Metformin. 7. Aspirin. 8. Bupropion. 9. Fluoxetine. 10. Roflumilast. 12. Oxybutynin. 13. Metoprolol. 14. Rosuvastatin. ALLERGIES: Sulfa. SOCIAL HISTORY: The patient is a former smoker. FAMILY HISTORY: Unremarkable. REVIEW OF SYSTEMS: A 10-point review of systems adds nothing to the history of present illness. He does complain of significant left-sided chest pain. PHYSICAL EXAMINATION: GENERAL: The patient is awake, alert, in no acute distress. VITALS: The blood pressure is 136/50 with a heart rate of 76. He is afebrile. Oxygen saturations are 98% on 3 L. HEENT: Normocephalic and atraumatic. No icterus. NECK: No JVD. Trachea is midline. CHEST: Clear to auscultation. CARDIAC: Regular rate and rhythm without murmur. ABDOMEN: Soft , nontender. Bowel sounds are present. EXTREMITIES: No clubbing, cyanosis, or edema. NEURO: The patient is awake and alert. He has no gross motor or sensory deficits. LABORATORY: A white blood count of 7.3, down from 11.9, hemoglobin is 9.8, down from 10.1. Chemistry group shows a blood sugar of 99, down from 240 earlier this morning. Sodium is 133. Bicarbonate level is 26. INR is 0.9. A chest x-ray shows no pulmonary contusion or pneumothorax. The left lateral nondisplaced rib fracture is visible. A CT scan of the chest shows moderate-to- severe emphysema with 4 nondisplaced left lateral rib fractures. Images are reviewed by me. ASSESSMENT: 1. Chronic obstructive pulmonary disease. This is severe, requiring ICS, LABA. LAMA, and Roflumilast, as well as continuous oxygen. He has now had several rib fractures. These are likely to make his breathing status worse, although he is tolerating them fairly well right now. He does report that he is having some cough with thick sputum, and guaifenesin might be helpful. 2. Rib fractures. These are nondisplaced and causing pain but no significant contusion and no pneumothorax. 3. History of coronary artery disease. 4. Diabetes. The patient's blood sugars were elevated, but have now come down with sliding scale insulin. RECOMMENDATIONS: 1. Continue current inhalers and Roflumilast. Supplemental oxygen as needed to maintain saturations in the low 90s. 2. Add guaifenesin p.r.n. 3. Pain control with morphine, Dilaudid, or oral narcotics. Toradol might be helpful as well. /[id number]/MODL MTDD
[2018-04-02] MEDS: ACETAMINOPHEN 325 MG TAB PO SCH ×4 (18:25→21:33)
[2018-04-02] MEDS: HYDROmorphONE/DILAUDID 2 MG TAB PO PRN (19:36)
[2018-04-02 20:17] LABS: PLATELET COUNT 321 10^3/uL (150-400)
[2018-04-02] MEDS: ALBUTEROL 60 PUFFS/8 GM MDI IH PRN (21:17)
[2018-04-02] MEDS: ASPIRIN EC 81 MG TAB PO SCH (21:35)
[2018-04-02] MEDS: oxyCODONE IR 5 MG TAB PO PRN (21:36)
[2018-04-02] MEDS: TAMSULOSIN HCL 0.4 MG CAP PO SCH (21:37)
[2018-04-02] MEDS: guaiFENesin 600 MG TAB.ER PO SCH (21:40)
[2018-04-02] MEDS: CARBOXYMETHYLCELLULOSE 0.5% 0.4 ML DROPERETTE EACHEYE PRN (21:49)
[2018-04-02] MEDS: PATCH REMOVAL 1 EA PATCH TD SCH (22:45)
[2018-04-03] MEDS: HYDROmorphONE/DILAUDID 2 MG TAB PO PRN ×4 (02:15→18:48)
[2018-04-03] MEDS: ACETAMINOPHEN 325 MG TAB PO SCH ×6 (02:16→21:40)
[2018-04-03] MEDS: oxyCODONE IR 5 MG TAB PO PRN ×4 (05:02→21:42)
[2018-04-03] MEDS: ALBUTEROL 60 PUFFS/8 GM MDI IH PRN (05:04)
[2018-04-03] MEDS: LEVOTHYROXINE 100 MCG TAB PO SCH (05:05)
[2018-04-03] MEDS: LIDOCAINE 4%/MENTHOL 1% PATCH TD SCH (08:25)
[2018-04-03] MEDS: SPIRONOLACTONE 25 MG TAB PO SCH (08:27)
[2018-04-03] MEDS: guaiFENesin 600 MG TAB.ER PO SCH ×2 (08:27→21:39)
[2018-04-03] MEDS: buPROPion XL 150 MG TAB PO SCH (08:27)
[2018-04-03] MEDS: ROSUVASTATIN CALCIUM 20 MG TAB PO SCH (08:27)
[2018-04-03] MEDS: PANTOPRAZOLE SODIUM 40 MG TAB PO SCH (08:28)
[2018-04-03] MEDS: METOPROLOL TARTRATE 25 MG TAB PO SCH ×2 (08:28→21:39)
[2018-04-03] MEDS: FLUoxetine 20 MG CAP PO SCH ×2 (08:28→21:39)
[2018-04-03] MEDS: INSULIN LISPRO 100 UNIT/ML SC SCH ×3 (08:29→17:16)
[2018-04-03] MEDS: Roflumilast [Daliresp] 500 MCG PO SCH (08:31)
[2018-04-03] MEDS: TIOTROPIUM INHALER 18 MCG/DOSE 5 DOSE/MDI IH SCH (08:34)
[2018-04-03] MEDS: FLUTICASONE/SALMETER 500/50MCG DISKUS IH SCH ×2 (08:34→21:50)
[2018-04-03] MEDS ORDERED: TIOTROPIUM INHALER 18 MCG/DOSE 5 DOSE/MDI IH SCH (09:00)
--- NOTE | 2018-04-03 09:39 | ASMTCMCOM ---
CM Note CM Note Notes: OT rec SNF vs. HHC, PT rec HHC vs outpatient, VOLUNTEER RECRUITER eval pending. Pt and amenable to HHC, they have had the [place] provider [facility] for HC before. Referral sent to [facility] in [employer]. CM to follow. D/c plan of care: Home with [facility] PT/OT Date Signed: 04/03/2018 09:38 AM Electronically Signed By:RADHA Marie
[2018-04-03] MEDS: ONDANSETRON DISINTEGRATING 4 MG TAB PO PRN ×2 (10:33→23:26)
[2018-04-03] MEDS: FLUTICASONE NASAL 120 SPRAYS/16 GM MDI EACHNARE SCH (10:39)
--- NOTE | 2018-04-03 11:40 | TRAUMAPN ---
Trauma Progress Note - Problem/Surgery Performed (1) Accidental fall Assessment/Plan: mechanical fall (tripped over O2 tubing) denies head injury or LOC Qualifiers: Encounter type: initial encounter Qualified Code(s): W19.XXXA - Unspecified fall, initial encounter (2) Emphysema of lung Assessment/Plan: longstanding/O2 dependent Qualifiers: Emphysema type: unspecified Qualified Code(s): J43.9 - Emphysema, unspecified (3) Multiple fractures of ribs of left side Assessment/Plan: discussed expected recovery/continue narcotics as needed for pain control will add stool softner to prevent constipation Qualifiers: Encounter type: initial encounter Fracture type: closed Qualified Code(s) : S22.42XA - Multiple fractures of ribs, left side, initial encounter for closed fracture (4) Supplemental oxygen dependent Assessment/Plan: uses a concentrator and liquid O2 at home He quit smoking 15 years ago and was already on O2 at that time (5) Anemia Assessment/Plan: Ambrosio is aware of his anemia and has been treated by his [facility] physicians with iron and transfusion. I have none of those records to review Will restart po Iron Qualifiers: Anemia type: unspecified type Qualified Code(s): D64.9 - Anemia, unspecified Assessment/Plan: s/p mechanical fall with uncomplicated left 5-8 rib fractures I discussed with Ambrosio and his the options of SNF vs. HHC. They would like to manage at home with HHC, which can be arranged with an appropriate HHC agency per [facility]. If he is cleared by OT/PT he could go later today. Subjective: moderated pain/sitting up in bed Objective: Vital Signs Temp Pulse Resp BP Pulse Ox 36.6 C 70 17 134/55 H 95 04/03/18 11:25 04/03/18 11:25 04/03/18 11:25 04/03/18 11:25 04/03/18 11:25 Laboratory Results 04/02/18 20:14 04/02/18 04:05 04/02/18 04/03/18 04/04/18 05:59 05:59 05:59 Intake Total 500 600 400 Output Total 450 775 Balance 50 -175 400 PT 12.8 SEC (12.0-15.0) 04/01/18 19:12 INR 0.94 (0.83-1.16) 04/01/18 19:12 - C-Spine Clearance Cervical Spine Cleared: Yes Provider who Cleared Cervical Spine: Bruce Physical Exam - Physical Exam General Appearance: alert, no apparent distress Neck: non-tender Respiratory: lungs clear, decreased breath sounds, other (no wheezing, rales or ronchi) Cardiac/Chest: regular rate, rhythm Abdomen: non-tender, soft Male Genitalia: deferred Rectal: deferred Skin: warm/dry Extremities: normal range of motion, non-tender Neuro/Psych: alert, normal mood/affect, oriented x 3, other (angry demeanor) Time Spent w/Patient (minutes): 35
[2018-04-03] MEDS ORDERED: NITROGLYCERIN 0.4 MG BTL SL PRN (13:09)
[2018-04-03] MEDS: FERRO-SEQUELS 65 MG TAB.ER PO SCH ×2 (14:00→21:58)
[2018-04-03] MEDS: SENNOSIDES/DOCUSATE SODIUM TAB PO SCH ×2 (14:01→21:39)
[2018-04-03] MEDS: OXYBUTYNIN CHLORIDE 5 MG TAB PO SCH ×2 (14:01→21:38)
[2018-04-03] MEDS: FUROSEMIDE 20 MG TAB PO SCH ×2 (14:01→14:07)
--- NOTE | 2018-04-03 16:15 | HOSPPROG ---
Hospitalist Progress Note Assessment/Plan: 77 yo M w/ COPD, DM, and CAD presents after a fall w/ acute rib fractures. Plan: 1. Mechanical fall c/b L rib fractures - XR (personally reviewed/interpreted) reveals minimally displaced posterolateral left 5th, 6th, 7th, and 8th rib fractures. - pain controlled, continue pulm toilet 2. DM - Controlled at home with metformin and NPH sliding scale. He reports good control after recent weight loss. - Will continue metformin, SSI while inpatient 3. COPD, CHRF - Severe, on chronic O2 and advanced therapies. He is currently stable on his home O2 with no evidence of acute exacerbation. - Continue home medications including advair, tiotropium, albuterol and daliresp 4. CAD - With 2 stents placed about 15 years ago; no evidence of acute process. - Will hold DAPT pending acute trauma - Restart when ok per trauma perspective; this is non-urgent noting remote nature of stent placement. 5. Inpatient--patient has been telling staff that he may dc AMA today, aggravated with still being here, sounds like trauma ok to dc when cleared by pt /ot Subjective: aggravated about still being in the hospital, stating he will leave ama but then calmer when present, states pain is controlled Objective: Vital Signs Temp Pulse Resp BP Pulse Ox 36.6 C 70 17 134/55 H 95 04/03/18 11:25 04/03/18 11:25 04/03/18 11:25 04/03/18 11:25 04/03/18 11:25 Laboratory Results 04/02/18 20:14 04/02/18 04:05 04/02/18 04/03/18 04/04/18 05:59 05:59 05:59 Intake Total 500 600 400 Output Total 450 775 Balance 50 -175 400 PT 12.8 SEC (12.0-15.0) 04/01/18 19:12 INR 0.94 (0.83-1.16) 04/01/18 19:12 awake alert elderly sclera injection rrr no mrg cta dec at bases softnt no cce ICD10 Worksheet Patient Problems: Problems Problem Status Onset Abrasion of left wrist, initial encounter Acute Accidental fall Acute Multiple fractures of ribs of left side Acute Supplemental oxygen dependent Acute Emphysema of lung Acute Chronic anticoagulation Acute Anemia Acute
[2018-04-03] MEDS: INSULIN NPH HUMAN 100 UNITS/ML SYR SC SCH ×2 (17:12→21:58)
[2018-04-03] MEDS: TAMSULOSIN HCL 0.4 MG CAP PO SCH (21:38)
[2018-04-03] MEDS: ASPIRIN EC 81 MG TAB PO SCH (21:38)
[2018-04-03] MEDS: PATCH REMOVAL 1 EA PATCH TD SCH (22:39)
[2018-04-04] MEDS: HYDROmorphONE/DILAUDID 2 MG TAB PO PRN ×2 (00:37→05:42)
[2018-04-04] MEDS: ACETAMINOPHEN 325 MG TAB PO SCH ×3 (02:56→11:22)
[2018-04-04] MEDS: oxyCODONE IR 5 MG TAB PO PRN ×5 (02:57→23:35)
[2018-04-04 05:33] LABS: PLATELET COUNT 332 10^3/uL (150-400)
[2018-04-04] MEDS: LEVOTHYROXINE 100 MCG TAB PO SCH (05:42)
[2018-04-04] MEDS: guaiFENesin 600 MG TAB.ER PO SCH ×2 (08:33→20:00)
[2018-04-04] MEDS: FUROSEMIDE 20 MG TAB PO SCH (08:33)
[2018-04-04] MEDS: buPROPion XL 150 MG TAB PO SCH (08:33)
[2018-04-04] MEDS: FLUoxetine 20 MG CAP PO SCH ×2 (08:34→20:03)
[2018-04-04] MEDS: CLOPIDOGREL BISULFATE 75 MG TAB PO SCH (08:34)
[2018-04-04] MEDS: FLUTICASONE NASAL 120 SPRAYS/16 GM MDI EACHNARE SCH (08:37)
[2018-04-04] MEDS: INSULIN LISPRO 100 UNIT/ML SC SCH ×3 (08:38→18:01)
[2018-04-04] MEDS: Roflumilast [Daliresp] 500 MCG PO SCH (08:39)
[2018-04-04] MEDS: FERRO-SEQUELS 65 MG TAB.ER PO SCH ×2 (08:40→20:00)
[2018-04-04] MEDS: SPIRONOLACTONE 25 MG TAB PO SCH (08:47)
[2018-04-04] MEDS: ROSUVASTATIN CALCIUM 20 MG TAB PO SCH (08:47)
[2018-04-04] MEDS: PANTOPRAZOLE SODIUM 40 MG TAB PO SCH (08:47)
[2018-04-04] MEDS: METOPROLOL TARTRATE 25 MG TAB PO SCH ×2 (08:47→20:02)
[2018-04-04] MEDS: SENNOSIDES/DOCUSATE SODIUM TAB PO SCH ×3 (08:48→20:07)
[2018-04-04] MEDS: OXYBUTYNIN CHLORIDE 5 MG TAB PO SCH ×2 (08:48→20:02)
[2018-04-04] MEDS: metFORMIN HCL 500 MG TAB PO SCH ×2 (08:48→17:49)
[2018-04-04] MEDS: LIDOCAINE 4%/MENTHOL 1% PATCH TD SCH (08:51)
[2018-04-04] MEDS: TIOTROPIUM INHALER 18 MCG/DOSE 5 DOSE/MDI IH SCH (08:55)
[2018-04-04] MEDS: FLUTICASONE/SALMETER 500/50MCG DISKUS IH SCH ×2 (08:55→20:19)
--- NOTE | 2018-04-04 09:49 | SOAPPROG ---
SOAP Progress Note Assessment/Plan: Assessment: 77 male with trip and fall sustaining multiple left rib fxs, nondisplaced/ no other injuries and no loc pt with DM, COPD heent nonicteric chest symmetric, clear bs/ tender left lateral ribs abd soft, nontender extrem ok pt on plavix and insulin as well as multiple pulmonary meds Plan:admit SDU/ IM consult/ RESP care 04/01/18 21:34 04/04/18 09:45 CALM TODAY/AFEBRILE/VITAL SIGNS STABLE/COOPERATIVE THIS A.M./COMPLAINS OF RIB PAIN ON THE LEFT HEENT NONICTERIC CHEST CLEAR AND SYMMETRIC WITH SIGNS OF COPD AND TENDERNESS OVER HIS LEFT RIB FRACTURES COR REGULAR RHYTHM ABDOMEN SOFT NONTENDER EXTREMITIES CHRONIC PERIPHERAL EDEMA LABS OKAY EXCEPT FOR IRON STUDIES WHICH ARE LOW/O2 SAT OKAY ON SUPPLEMENTAL OXYGEN/HOPEFULLY HOME SOON/COULD CONSIDER TORADOL BUT HE IS SEVERELY IRON DEFICIENT AND ANEMIC 04/04/18 09:48 Objective: Vital Signs Temp Pulse Resp BP Pulse Ox 36.9 C 73 18 112/58 L 96 04/04/18 08:00 04/04/18 08:00 04/04/18 08:00 04/04/18 08:00 04/04/18 08:00 Laboratory Results 04/04/18 04:33 04/02/18 04:05 04/03/18 04/04/18 04/05/18 05:59 05:59 05:59 Intake Total 600 900 Output Total 775 Balance -175 900 PT 12.8 SEC (12.0-15.0) 04/01/18 19:12 INR 0.94 (0.83-1.16) 04/01/18 19:12 ICD10 Worksheet Patient Problems: Problems Problem Status Onset Abrasion of left wrist, initial encounter Acute Accidental fall Acute Anemia Acute Chronic anticoagulation Acute Emphysema of lung Acute Multiple fractures of ribs of left side Acute Supplemental oxygen dependent Acute
[2018-04-04] MEDS: INSULIN NPH HUMAN 100 UNITS/ML SYR SC SCH ×2 (11:12→20:21)
[2018-04-04] MEDS ORDERED: ACETAMINOPHEN 325 MG TAB PO PRN (14:00)
--- NOTE | 2018-04-04 16:13 | HOSPPROG ---
Hospitalist Progress Note Assessment/Plan: 77 yo M w/ COPD, DM, and CAD presents after a fall w/ acute rib fractures. Plan: #. Mechanical fall c/b L rib fractures - XR (personally reviewed/interpreted) reveals minimally displaced posterolateral left 5th, 6th, 7th, and 8th rib fractures. - pain controlled, continue pulm toilet # metabolic/toxic encephalopathy: patient today noted to be increasingly confused, talking about remote events as if they happened yesterday, is oriented at the time of my eval but apparently has been confused as to where he is and why. Pupils noted to be pinpoint. Suspect this is largely due to pain medications but also hospitalization and pain contributing. Will work on reorienting, will limit pain meds as able. #. DM - Controlled at home with metformin and NPH sliding scale. He reports good control after recent weight loss. - Will continue metformin, SSI while inpatient # COPD, CHRF - Severe, on chronic O2 and advanced therapies. He is currently stable on his home O2 with no evidence of acute exacerbation. - Continue home medications including advair, tiotropium, albuterol and daliresp # CAD - With 2 stents placed about 15 years ago; no evidence of acute process. - Will hold DAPT pending acute trauma - Restart when ok per trauma perspective; this is non-urgent noting remote nature of stent placement. # Inpatient, may need to dc to snf Care plan reviewed with CM and patients present at bedside at length Subjective: patient notes that today he is confused, he is at times adamant that he knows exactly what is going on and frustrated with questions about that , but at other times acknowledges that he is confused and not sure what is going on Objective: Vital Signs Temp Pulse Resp BP Pulse Ox 36.9 C 73 18 112/58 L 96 04/04/18 08:00 04/04/18 08:00 04/04/18 08:00 04/04/18 08:00 04/04/18 08:00 Laboratory Results 04/04/18 04:33 04/02/18 04:05 04/03/18 04/04/18 04/05/18 05:59 05:59 05:59 Intake Total 600 900 400 Output Total 775 750 Balance -175 900 -350 PT 12.8 SEC (12.0-15.0) 04/01/18 19:12 INR 0.94 (0.83-1.16) 04/01/18 19:12 awake alert elderly sclera injection rrr no mrg decreased bs throughout, normal wob soft nt no cce encephalopathic - Time Spent With Patient Time Spent with Patient: greater than 35 minutes Time Spent with Patient: Greater than 35 minutes spent on this patients care, greater than 50% of time spent counseling, educating, and coordinating care regarding the above mentioned plan. ICD10 Worksheet Patient Problems: Problems Problem Status Onset Abrasion of left wrist, initial encounter Acute Accidental fall Acute Anemia Acute Chronic anticoagulation Acute Emphysema of lung Acute Multiple fractures of ribs of left side Acute Supplemental oxygen dependent Acute
[2018-04-04] MEDS: ONDANSETRON DISINTEGRATING 4 MG TAB PO PRN (17:51)
[2018-04-04] MEDS ORDERED: POLYETHYLENE GLYCOL 3350 17 GM PKT PO PRN (19:39)
[2018-04-04] MEDS ORDERED: LACTULOSE 20 GM/30 ML UDCUP PO PRN (19:39)
[2018-04-04] MEDS ORDERED: BISACODYL 10 MG SUPP PR PRN (19:39)
[2018-04-04] MEDS ORDERED: MAGNESIUM HYDROXIDE 30 ML UDCUP PO PRN (19:39)
[2018-04-04] MEDS: ASPIRIN EC 81 MG TAB PO SCH (20:00)
[2018-04-04] MEDS: TAMSULOSIN HCL 0.4 MG CAP PO SCH (20:01)
[2018-04-04] MEDS: PATCH REMOVAL 1 EA PATCH TD SCH (20:18)
[2018-04-05] MEDS: HYDROmorphONE/DILAUDID 2 MG TAB PO PRN ×4 (00:07→15:30)
[2018-04-05] MEDS: oxyCODONE IR 5 MG TAB PO PRN (05:44)
[2018-04-05] MEDS: LEVOTHYROXINE 100 MCG TAB PO SCH (05:45)
[2018-04-05] MEDS: INSULIN LISPRO 100 UNIT/ML SC SCH ×2 (07:33→12:47)
[2018-04-05] MEDS: ALBUTEROL 60 PUFFS/8 GM MDI IH PRN (08:51)
[2018-04-05] MEDS: FLUTICASONE/SALMETER 500/50MCG DISKUS IH SCH (08:51)
[2018-04-05] MEDS: TIOTROPIUM INHALER 18 MCG/DOSE 5 DOSE/MDI IH SCH (08:52)
--- NOTE | 2018-04-05 09:11 | TRAUMAPN ---
Trauma Progress Note Assessment/Plan: 77 Y M s/p trip and fall c multiple rib fractures, COPD, CAD c Stents, DM. CXR today. Pain control. COPD. On chronic O2 use. CAD. Plavix restarted. Appreciate medicine's management of comorbidities. Dispo: pending CXR and medical clearance--likely d/c soon. SNF may be best. S: per RN, upset with staff. Security called and in room. C/o pain--about to take dilaudid. O: alert, nad, sitting bedside, slight wob, hunched over. ncat lungs clear rrr abd soft, nt Objective: Vital Signs Temp Pulse Resp BP Pulse Ox 36.7 C 85 18 106/59 L 94 04/05/18 07:17 04/05/18 08:43 04/05/18 08:43 04/05/18 07:17 04/05/18 08:43 Laboratory Results 04/04/18 04:33 04/02/18 04:05 04/04/18 04/05/18 04/06/18 05:59 05:59 05:59 Intake Total 900 1900 Output Total 1140 Balance 900 760 PT 12.8 SEC (12.0-15.0) 04/01/18 19:12 INR 0.94 (0.83-1.16) 04/01/18 19:12 - C-Spine Clearance Cervical Spine Cleared: Yes Provider who Cleared Cervical Spine: Bruce
[2018-04-05] MEDS: LIDOCAINE 4%/MENTHOL 1% PATCH TD SCH (09:17)
[2018-04-05] MEDS: buPROPion XL 150 MG TAB PO SCH (09:18)
[2018-04-05] MEDS: guaiFENesin 600 MG TAB.ER PO SCH (09:19)
[2018-04-05] MEDS: SENNOSIDES/DOCUSATE SODIUM TAB PO SCH ×2 (09:20→09:35)
[2018-04-05] MEDS: metFORMIN HCL 500 MG TAB PO SCH (09:20)
[2018-04-05] MEDS: FUROSEMIDE 20 MG TAB PO SCH (09:21)
[2018-04-05] MEDS: FLUoxetine 20 MG CAP PO SCH (09:21)
[2018-04-05] MEDS: PANTOPRAZOLE SODIUM 40 MG TAB PO SCH (09:23)
[2018-04-05] MEDS: ROSUVASTATIN CALCIUM 20 MG TAB PO SCH (09:23)
[2018-04-05] MEDS: CLOPIDOGREL BISULFATE 75 MG TAB PO SCH (09:23)
[2018-04-05] MEDS: OXYBUTYNIN CHLORIDE 5 MG TAB PO SCH (09:24)
[2018-04-05] MEDS: Roflumilast [Daliresp] 500 MCG PO SCH (09:26)
[2018-04-05] MEDS: CARBOXYMETHYLCELLULOSE 0.5% 0.4 ML DROPERETTE EACHEYE PRN (09:27)
[2018-04-05] MEDS: SPIRONOLACTONE 25 MG TAB PO SCH (09:34)
[2018-04-05] MEDS: FERRO-SEQUELS 65 MG TAB.ER PO SCH (09:35)
[2018-04-05] MEDS: FLUTICASONE NASAL 120 SPRAYS/16 GM MDI EACHNARE SCH (09:36)
--- NOTE | 2018-04-05 10:57 | ASMTCMCOM ---
CM Note CM Note Notes: I spoke w patient's Karen about SNF v HC. She wants to take patient home and feels confident as caregiver. House has DME and adaptive devices. [facility] will follow for home care. Karen did have questions about adjusting patient's psych meds d/t increasing anxiety, and I encouraged her to f/u w his PCP and/or psychiatrist. I will relay this to hospitalist, as well. Current CM Discharge plan: home w [facility] RN/PT/OT Date Signed: 04/05/2018 10:57 AM Electronically Signed By:Pat Cowan RN
[2018-04-05] MEDS: METOPROLOL TARTRATE 25 MG TAB PO SCH (12:03)
--- NOTE | 2018-04-05 14:32 | HOSPPROG ---
Hospitalist Progress Note Assessment/Plan: 77 yo M w/ COPD, DM, and CAD presents after a fall w/ acute rib fractures. Plan: #. Mechanical fall c/b L rib fractures - XR showing minimally displaced posterolateral left 5th, 6th, 7th, and 8th rib fractures. Repeat CXR ordered for today for f/u. pain controlled, continue pulm toilet # metabolic/toxic encephalopathy: continues to have intermittent confusion but much better today, in the setting of pain and pain medications as above, working to limit pain meds as able #. DM - Controlled at home with metformin and NPH sliding scale. He reports good control after recent weight loss. Will continue metformin, SSI while inpatient # COPD, CHRF - Severe, on chronic O2 and advanced therapies. He is currently stable on his home O2 (3-4L) with no evidence of acute exacerbation. - Continue home medications including advair, tiotropium, albuterol and daliresp # CAD - With 2 stents placed about 15 years ago; no evidence of acute process. - will resume anti platelet medications when cleared by trauma, non urgent given remote stents but likely could be done at time of discharge # Inpatient, may need to dc to snf if patient amenable, medically clear for discharge when felt appropriate by trauma service Care plan reviewed with CM Subjective: no significant overnight events, patient states pain is currently controlled since getting pain meds earlier, he denies new complaints Objective: Vital Signs Temp Pulse Resp BP Pulse Ox 36.8 C 95 18 119/59 L 94 04/05/18 12:00 04/05/18 12:03 04/05/18 12:00 04/05/18 12:03 04/05/18 12:00 Laboratory Results 04/04/18 04:33 04/02/18 04:05 04/04/18 04/05/18 04/06/18 05:59 05:59 05:59 Intake Total 900 1900 300 Output Total 1140 325 Balance 900 760 -25 PT 12.8 SEC (12.0-15.0) 04/01/18 19:12 INR 0.94 (0.83-1.16) 04/01/18 19:12 awake alert elderly sclera injection rrr no mrg decreased bs throughout, normal wob soft nt no cce currently oriented - Time Spent With Patient Time Spent with Patient: greater than 35 minutes Time Spent with Patient: Greater than 35 minutes spent on this patients care, greater than 50% of time spent counseling, educating, and coordinating care regarding the above mentioned plan. ICD10 Worksheet Patient Problems: Problems Problem Status Onset Abrasion of left wrist, initial encounter Acute Accidental fall Acute Anemia Acute Chronic anticoagulation Acute Emphysema of lung Acute Multiple fractures of ribs of left side Acute Supplemental oxygen dependent Acute
--- NOTE | 2018-04-05 15:36 | PDIAF ---
- Diagnosis Diagnosis: fall c multiple rib fractures, (hx COPD, DM, CAD) Code Status: Full Code - Medication Management Discharge Medications: electronically signed and located in the Home Medication List. PICC Care - Routine: N/A - Orders Services needed: Home Care, Registered Nurse, Physical Therapy, Occupational Therapy Home Care Face to Face: I certify that this patient was under my care and that I had the required [id number] encounter meeting the encounter requirements on the discharge day. My findings support the fact that the patient is homebound as defined in Home Care Face to Face Continued: CMS Chapter 7 Medicare Benefits Manual 30.1.1 , The condition of the patient is such that there exists a normal inability to leave home and consequently, leaving home would require a considerable and taxing effort. Diet Recommendation: ADA 2000 consistent carb Diet Texture: Regular Texture Diet [place]: Not applicable Additional Instructions: Avoid strenuous activity. We recommend follow up with a medical provider in 2-3 days. We recommend that you have a chest xray done at that time to look at the fractures and make sure you don't have lung collapse or PNA or other problems. We are happy to see you at [facility], Dr. Andrey Barrera ' office ([phone]), your trauma surgeon if you would prefer and/or [facility] allows. If [facility] doesn't allow this you will need to follow up there in 2-3 days. Again, we recommend you have a chest xray at that time. - Follow Up Care Current Providers and Referrals: JACK NOBLE [Primary Care Provider] -
--- NOTE | 2018-04-05 15:44 | ASMTDCNOTE ---
Case Management Discharge Discharge Order Complete? Answers: Yes Patient to Obtain Answers: Independently Medications Transportation Arranged Answers: Family/Friends Faxed Final Orders Answers: Yes Family Notified Answers: Yes Discharge Comments Notes: Patient discharged home w . Home health through [facility]. Orders sent. Date Signed: 04/05/2018 03:44 PM Electronically Signed By:Pat Cowan RN
--- NOTE | 2018-04-05 15:44 | ASMTLACE ---
LACE Length of stay for Answers: 4-6 days current admission Comorbidities - select Answers: Chronic pulmonary disease all that apply Congestive heart failure Coronary Artery Disease Diabetes (uncontrolled or controlled) Other Notes: HTN # of Emergency department Answers: 1-2 visits in the last 6 months Social determinants Answers: Mental health diagnosis (anxiety, depression, pers onality disorders, etc.) Score: 16 Date Signed: 04/05/2018 03:43 PM Electronically Signed By:Pat Cowan RN
[2018-04-05 16:19] VITALS: BP 121/69
[2018-04-06] MEDS ORDERED: Tiotropium Bromide [Spiriva Respimat] 2.5 MCG IH SCH (09:00)
--- NOTE | 2018-04-06 09:32 | ASDISCHSUM ---
Discharge Information Plan Status: Medically Cleared to Leave: Discharge Date:04/05/2018 05:20 PM CM D/C Disposition: ADT D/C Disposition:Home, Routine, Self-Care Projected Discharge Date:04/04/2018 11:00 AM Transportation at D/C: Discharge Delay Reason: Follow-Up Date:04/04/2018 11:00 AM Discharge Slot: Final Diagnosis: Placement Information Referral Type:*Home Health Care Services Ref[facility] ID:[id number] Provider Name:[facility] Address 1:[address] Address 2: City:[place] Selection Factors: State:[place] Patient Contact Information Contact Name:IRAIS Relationship: Address:[address] City:[place] Alternate Phone: State/Zip Code:[place] [address] Email: Financial Information Financial Class:Medicare Advantage Plans Primary Plan Desc:[employer] ADV IP Primary Plan Number:[id number] Secondary Plan Desc: Secondary Plan Number: Assessment Information LACE LACE Length of stay for Answers: 4-6 days current admission Comorbidities - select Answers: Chronic pulmonary disease all that apply Congestive heart failure Coronary Artery Disease Diabetes (uncontrolled or controlled) Other Notes: HTN # of Emergency department Answers: 1-2 visits in the last 6 months Social determinants Answers: Mental health diagnosis (anxiety, depression, pers onality disorders, etc.) Score: 16 Date Signed: 04/05/2018 03:43 PM Electronically Signed By:Pat Cowan RN [facility] Initial CM Assessment Living Arrangements What is your living Answers: With Spouse arrangement? Who do you live with? Type Of Residence What kind of residence do Answers: House you live in? Discharge Plan Comments Coordination Status Comments Notes: Patient is a 77yo male who tripped and fell at home and sustained multiple rib fractures. Patient has COPD and is on 2-3 l of oxygen continuously. He also has a hx of coronary artery disease and depression. Patient's reports he has had frequent falls. PT/OT/TOASTER OPERATOR/Inpatient Rehab have all been ordered for the patient. D/C plan TBD. CM will follow. Date Signed: 04/02/2018 03:48 PM Electronically Signed By:Josee Dumont LCSW [facility] CM Progress Note CM Note CM Note Notes: OT rec SNF vs. HHC, PT rec HHC vs outpatient, TOASTER OPERATOR eval pending. Pt and amenable to HHC, they have had the [place] provider [facility] for HC before. Referral sent to [facility] in [facility]. CM to follow. D/c plan of care: Home with [facility] C PT/OT Date Signed: 04/03/2018 09:38 AM Electronically Signed By:RADHA Marie [facility] CM Progress Note CM Note CM Note Notes: I spoke w patient's Karen about SNF v HC. She wants to take patient home and feels confident as caregiver. [facility] has DME and adaptive devices. [facility] will follow for home care. Karen did have questions about adjusting patient's psych meds d/t increasing anxiety, and I encouraged her to f/u w his PCP and/or psychiatrist. I will relay this to hospitalist, as well. Current CM Discharge plan: home w [facility] RN/PT/OT Date Signed: 04/05/2018 10:57 AM Electronically Signed By:Pat Cowan RN Case Management Discharge Plan Note Case Management Discharge Discharge Order Complete? Answers: Yes Patient to Obtain Answers: Independently Medications Transportation Arranged Answers: Family/Friends Faxed Final Orders Answers: Yes Family Notified Answers: Yes Discharge Comments Notes: Patient discharged home w . [facility] through [facility]. Orders sent. Date Signed: 04/05/2018 03:44 PM Electronically Signed By:Pat Cowan RN [facility] Information
--- NOTE | 2018-04-12 14:02 | GDS ---
DISCHARGE DIAGNOSES: 1. Mechanical fall with left-sided 5th, 6th, 7th, and 8th rib fractures. 2. Diabetes, controlled with metformin and sliding scale. 3. Chronic obstructive pulmonary disease on chronic oxygen and advanced therapies without evidence o f acute exacerbation. 4. Coronary artery disease with history of 2 stents placed about 15 years ago. CONSULTATIONS: Hospitalist service. SPECIAL TESTS: Please see reports for chest and head CTs, as well as multiple chest x-rays. HOSPITAL COURSE: The patient is a 77-year-old male who presented to the emergency department via EMS after tripping on the carpet while wearing shoes inside the house approximately 1 hour prior to arri naz. The patient first hit his left wrist and his left ribs. He reported having the "wind knocked o ut of him." He was found to have multiple left-sided chest fractures, acute rib fractures without ev idence of pneumothorax. He was admitted for observation. The hospitalist service was consulted to assist in management of his comorbidities. Initially his an ti-platelet therapy was held. Repeat chest x-rays were performed. His pain was controlled with Dila udid. His diabetes was controlled with metformin and sliding insulin scale. DISCHARGE INSTRUCTIONS: Discharge to a subacute nursing facility was recommended but refused. He ag rosetta to home nursing as well as home physical therapy and occupational therapy. We recommend that he follow up with the provider in 2-3 days with a repeat chest x-ray. We were willing to see him in Dr Chris Barrera's office. However, as the patient is a [place] patient, he may be limited to going there for care. /[id number]/MODL
--- NOTE | 2018-04-14 08:48 | PQFORM ---
PHYSICIAN QUERY FORM Needs Your Response This query form is being sent to you to assure this patient record is coded properly. Please respond to the question below: AEROSPACE ENGINEER QUESTION: [place] [facility] Progress notes indicate patient having either Toxic Encephalopathy or Confusion 2/2 pain/pain meds however this was not addressed in the Discharge Summary. Please clarify - did this patient have: ___ Toxic Encephalopathy ___ Confusion ___ Other (Please Specify ) _x__ Unable to Determine Thank You Kimberli [employer] Kennel Supervisor INSTRUCTIONS FOR RESPONSE: Answer question by clicking on the "Edit Document" button. Move cursor to area below the stars. When complete, hit "Save." Click on the "Sign" button, then click "Sign" again. Type in your PIN and hit "Enter." MTDD
== END 2018-04-05 17:20 | disposition home or self-care (01) | DRG 184 ==
LOC: EDUNIT# → F2N 21:46 → F3N 04-02 18:39
PROVIDERS: ADMIT Surgery; ATTEND Surgery
DX: S22.42XA Multiple fractures of ribs, left side, initial encounter for closed fracture (principal); W22.8XXA Striking against or struck by other objects, initial encounter; Y92.019 Unspecified place in single-family (private) house as the place of occurrence of the external cause; J44.9 Chronic obstructive pulmonary disease, unspecified; J96.11 Chronic respiratory failure with hypoxia; I25.10 Atherosclerotic heart disease of native coronary artery without angina pectoris; E11.9 Type 2 diabetes mellitus without complications; D64.9 Anemia, unspecified; I10 Essential (primary) hypertension; Z79.4 Long term (current) use of insulin; Z95.5 Presence of coronary angioplasty implant and graft; Z87.891 Personal history of nicotine dependence; Z99.81 Dependence on supplemental oxygen
CPT/HCPCS: 82435-PO; 82565-PO; 82947-PO; 84132-PO; 84295-PO; 84520-PO; 85014-ER; 92523-GN; 96374; 97116-GP; 97161-GP; 97166-GO; 97530-GO; 97530-GP; 97535-GO; J1170; J1650; J1815; J2270; J2405; Q9967